=== PATIENT | female | born 1965 | race Caucasian/White ===

== ENCOUNTER → 2017-07-13 | Outpatient (CLI) | payer MEDICAID | END | disposition home or self-care (01) | LOC: LAB 10:00 | PROVIDERS: ATTEND Podiatrist Foot & Ankle Surgery | DX: M72.2 Plantar fascial fibromatosis (principal) ==

== ENCOUNTER 2018-10-22 23:25 | Emergency (ER) | payer MEDICAID ==
[~2018-10-22] VITALS: Ht 154.9 cm; Wt 68.0 kg
[2018-10-23 07:02] VITALS: BP 132/84
[2018-10-23] MEDS ORDERED: NEOMYCIN-BACITRACIN-POLYM UNITDOSE PKG TOP OINT TOP ONE (07:15)
[2018-10-23] MEDS ORDERED: LIDOCAINE 1% HCL (LOCAL ANESTH.) INJ 20ML MDV IJ ONE (07:15)
== END 2018-10-23 07:46 | disposition home or self-care (01) ==
LOC: ER 23:25
DX: S61.217A Laceration without foreign body of left little finger without damage to nail, initial encounter (principal); W26.9XXA Contact with unspecified sharp object(s), initial encounter; Y93.89 Activity, other specified; Y99.8 Other external cause status; Y92.89 Other specified places as the place of occurrence of the external cause
CPT/HCPCS: 12001